=== PATIENT | male | born 1970 | race Caucasian/White ===

== ENCOUNTER 2018-10-28 08:13 | Inpatient (IN) | payer OTHER ==
[~2018-10-28] VITALS: Ht 177.8 cm; Wt 94.5 kg
[~2018-10-28 08:13] MED LIST: BUPIVACAINE HCL/PF 0.5% 30 ML VIAL ONE; BUPIVACAINE LIPOSOME/PF 1.3%-13.3MG/ML SUSPENSION 10 ML VIAL INJ ONE; CeFAZolin 2 GM/DEXTROSE 50 ML IV ONE; RINGERS SOLUTION,LACTATED 1,000 ML IV ONE; VANCOMYCIN HCL 500 MG/VIAL ONE
[2018-10-28] MEDS ORDERED: OXYC10 PO (08:33)
[2018-10-28] MEDS ORDERED: ATEN100T PO (08:33)
[2018-10-28] MEDS ORDERED: PARO20TA24 PO (08:33)
[2018-10-28 08:39] LABS: BASOPHILS % (AUTO) 0.5 % (0.0-2.0); HEMATOCRIT 43.6 % (41-53); HEMOGLOBIN 14.8 g/dL (13.5-17.5); LYMPHOCYTES # (AUTO) 1.2 K/uL (1.0-4.8); LYMPHOCYTES % (AUTO) 32.8 % (22.0-44.0); MEAN CORPUSCULAR HEMOGLOBIN 30.6 pg (26.0-34.0); MEAN CORPUSCULAR HGB CONC 33.9 G/dL (31.0-37.0); MEAN CORPUSCULAR VOLUME 90 fL (80-100); MONOCYTES # (AUTO) 0.4 K/uL (0.1-1.0); MONOCYTES % (AUTO) 9.4 % (2.0-9.0); NEUTROPHILS % (AUTO) 53.3 % (40.0-70.0); PLATELET COUNT (AUTO) 300 K/uL (150-450); RED BLOOD CELL COUNT(AUTO) 4.83 MIL/uL (4.50-5.90); RED CELL DISTRIBUTION WIDTH 13.8 % (11.5-14.5)
[2018-10-28 08:52] LABS: PROTHROMBIN TIME 10.5 SEC (9.4-11.6)
[2018-10-28 08:55] LABS: CALCIUM, TOTAL 9.8 mg/dL (8.8-10.5); CREATININE 1.39 mg/dL (0.60-1.30); POTASSIUM 4.9 mmol/L (3.5-5.1)
[2018-10-28 08:59] LABS: ALBUMIN 4.2 g/dL (3.4-5.0); BILIRUBIN,TOTAL 0.5 mg/dL (0.1-1.0); TOTAL PROTEIN, SERUM 7.6 g/dL (6.4-8.2)
[2018-10-28] MEDS ORDERED: SUGAMMADEX SODIUM 200 MG/2 ML VIAL IVP ONE (10:45)
[2018-10-28] MEDS ORDERED: FentaNYL CITRATE-PF 100 MCG/2 ML VIAL IVP PRN (11:15)
[2018-10-28] MEDS ORDERED: ONDANSETRON HCL 4 MG/2 ML VIAL IVP PRN (11:15)
[2018-10-28] MEDS ORDERED: MEPERIDINE-PF 25 MG/ML VIAL IVP PRN (11:15)
[2018-10-28] MEDS ORDERED: ACETAMINOPHEN 1000 MG/ISO-OSM 100 ML IV ONE (11:40)
[2018-10-28] MEDS: ACETAMINOPHEN 1000 MG/ISO-OSM 100 ML IV SCH ×3 (11:42→23:22)
[2018-10-28] MEDS ORDERED: HYDROmorphone 2 MG/ML SYRINGE ONE (11:48)
[2018-10-28] MEDS: HYDROmorphone 2 MG/ML SYRINGE IVP PRN ×2 (11:51→12:27)
[2018-10-28 13:00] VITALS: BP 110/63
[2018-10-28] MEDS: OxyCODONE HCL 5 MG IR TABLET PO PRN ×3 (13:29→23:22)
[2018-10-28 16:05] VITALS: BP 106/64
[2018-10-28] MEDS ORDERED: OXYGEN THERAPY IH SCH (20:00)
[2018-10-28 20:10] VITALS: BP 116/66
[2018-10-28 23:49] VITALS: BP 112/66
[2018-10-29 04:00] VITALS: BP 132/75
[2018-10-29] MEDS: ACETAMINOPHEN 1000 MG/ISO-OSM 100 ML IV SCH (05:19)
[2018-10-29] MEDS: OxyCODONE HCL 5 MG IR TABLET PO PRN ×2 (05:19→10:02)
[2018-10-29] MEDS ORDERED: EPHEDrine SULFATE 50 MG/ML VIAL IM ONE (05:25)
[2018-10-29] MEDS ORDERED: PROPOFOL 1% 20 ML VIAL IVP ONE (05:25)
[2018-10-29] MEDS ORDERED: ONDANSETRON HCL 4 MG/2 ML VIAL IVP ONE (05:25)
[2018-10-29] MEDS ORDERED: FentaNYL CITRATE-PF 100 MCG/2 ML VIAL IVP ONE (05:25)
[2018-10-29] MEDS ORDERED: SUCCINYLCHOLINE CHLORIDE 20 MG/ML 10 ML VIAL IVP ONE (05:25)
[2018-10-29] MEDS ORDERED: ROCURONIUM BROMIDE 10 MG/ML 5 ML VIAL IVP ONE (05:25)
[2018-10-29] MEDS ORDERED: LIDOCAINE/PF 2% 5 ML VIAL IM ONE (05:25)
[2018-10-29] MEDS ORDERED: MIDAZOLAM HCL 2 MG/2 ML VIAL IVP ONE (05:25)
[2018-10-29 07:16] VITALS: BP 134/79
[2018-10-29] MEDS ORDERED: OxyCODONE HCL/ACETAMINOPHEN 10-325 MG TABLET PO ONE (11:45)
[2018-10-29 12:34] VITALS: BP 131/68
== END 2018-10-29 12:50 | disposition home or self-care (01) | DRG 517 ==
LOC: 4E 08:13
PROVIDERS: ADMIT Orthopaedic Surgery Orthopaedic Surgery of the Spine; ATTEND Orthopaedic Surgery Orthopaedic Surgery of the Spine
PROC: 01NB0ZZ Release Lumbar Nerve, Open Approach (ICD-10-PCS; principal; 2018-10-28 10:45)
DX: M48.061 Spinal stenosis, lumbar region without neurogenic claudication (principal)
CPT/HCPCS: 87081; 97116; 97161; 97165; 97535; G0378; J0131; J0330; J0690; J1170; J2250; J2405; J2704; J3010; J3370; J3490; J7120